=== PATIENT | female | born 1965 | race Caucasian/White ===

== ENCOUNTER 2022-12-09 00:12 | Day surgery (SDC) | payer OTHER, MEDICARE, MEDICAID, SELFPAY ==
[2022-11-27 13:04] VITALS: BMI 29.8
--- NOTE | 2022-11-27 13:14 | PC.NURSE ---
Report to the Outpatient Waiting Room, entrance under the green pavilion located off [facility], at time 9:30 on date 12/09/22. Planned Procedure Time: 11:30. Time changes happen often and if your time is changed the preop area will call you the afternoon before. - You and your visitor will be asked to self-screen and do not enter if you have any COVID symptoms. - Only one visitor is requested with a max of two and NO children visitors are allowed at this time. - The patient visitor may be requested to leave or wait in car when not with patient due to distancing restrictions. - A mask is optional within the hospital. Patients may have clear liquids (water, carbonated beverages, clear teas, apple juice) until 3 hours prior to surgery with a maximum of 20 ounces. - No food from midnight until time of surgery Take the following medications with a SIP of water the morning of surgery: INHALERS, DIVALPROEX, LEVOTHYROXINE, METOPROLOL, PREGABALIN, TOPIRAMATE Medications to discontinue per physician: VITAMINS/SUPPLEMENTS Date to take last dose: 12/05/22 Please no make-up, nail slovak, hairspray, perfume, deodorant, or body powder the day of surgery. No jewelry (including any body piercings) or valuables the day of surgery, leave them at home. Please take a shower or bath the night before, or the morning of, surgery with an antibacterial soap. Wear comfortable, loose fitting clothing. - Jewelry must be removed prior to entering the operating room. Rings and piercings that are not removed may be cut off. - The hospital will not accept responsibility for valuables. - Please leave all valuables, including medications, at home the day of surgery. If you are going home after surgery, a licensed electric screw driver operator must drive you home. - NO public transportation without another adult if you receive anesthesia. - We recommend that an adult stay with you for 24 hours following discharge. - We also recommend that you do not drive, make important decision, drink alcoholic beverages, or take any drugs that were not prescribed by your health care provider for at least 24 hours after your discharge time. Follow any additional instructions given to you from your surgeon. If you or anyone in your household have experienced Covid symptoms in the past week, please notify your surgeon or the nurse liaison at the phone number below for possible testing. Telephone instructions given to SO ADEN and asked if any additional questions and then verbalized understanding. Patient advised to call surgeon office or pre surgery nurse liaison [phone] if any additional questions.
--- NOTE | 2022-12-08 11:55 | PM.IMHP ---
H&P: HPI History of Present Illness Date/Time: 12/08/22 11:55 Chief Complaint: Prolapse, stress incontinence Narrative: This is a woman with mixed urinary incontinence. For her overactive bladder symptoms she receives Botox injections. She continues to be bothered by pelvic organ prolapse as well as stress incontinence. She is wearing a pessary currently to temporize her prolapse symptoms. She desires surgical treatment to resolve the symptoms. Stress incontinence is documented on urodynamic Review of Systems Review of Systems: All systems reviewed & are unremarkable except as noted in HPI and below [facility] Social History Social History Smoking status: Never smoker Alcohol intake: never Substance use: never Substance use type: does not use Living arrangements: with family Spiritual care concerns: No Meds Home Medications and Allergies Home Medications Medication Instructions Recorded Confirmed Type albuterol sulfate 90 mcg/actuation 2 puff inhalation QID PRN 11/27/22 11/27/22 History aerosol inhaler Bronchospasm biotin 10,000 mcg chewable tablet 10,000 mcg PO BID 11/27/22 11/27/22 History (Hair, Skin and Nails (biotin)) budesonide-formoterol HFA 160 2 puff inhalation Q12H 11/27/22 11/27/22 History mcg-4.5 mcg/actuation aerosol inhaler (Symbicort) mjegkzqkyf-qlwdbbyztmdtk-azgbchnp 1 tablet PO Q6H PRN Pain 11/27/22 11/27/22 History 50 mg-325 mg-40 mg tablet calcium carbonate 500 mg-vitamin 1 tablet PO BID 11/27/22 11/27/22 History D3 3.125 mcg (125 unit) tablet cetirizine 10 mg tablet (Zyrtec) 10 mg PO DAILY 11/27/22 11/27/22 History cyclosporine 0.05 % eye drops in a 1 drp EACH EYE Q12H 11/27/22 11/27/22 History dropperette (Restasis) diltiazem HCl 120 mg 120 mg PO DAILY 11/27/22 11/27/22 History capsule,extended release 24 hr, controlled divalproex 250 mg tablet,extended 250 mg PO DAILY 11/27/22 11/27/22 History release 24 hr duloxetine 60 mg capsule,delayed 60 mg PO HS 11/27/22 11/27/22 History release levothyroxine 50 mcg tablet 50 mcg PO DAILY 11/27/22 11/27/22 History lxmgxf-dvacuvex-bgneihx 1 cap PO TID 11/27/22 11/27/22 History 24,000-76,000-120,000 unit capsule,delayed rel (Creon) lubiprostone 8 mcg capsule 8 mcg PO BID 11/27/22 11/27/22 History (Amitiza) metoprolol succinate 25 mg 25 mg PO BID 11/27/22 11/27/22 History tablet,extended release 24 hr montelukast 10 mg tablet 10 mg PO HS 11/27/22 11/27/22 History (Singulair) omeprazole 20 mg tablet,delayed 20 mg PO BID 11/27/22 11/27/22 History release ondansetron 8 mg disintegrating 8 mg PO Q8H PRN Nausea 11/27/22 11/27/22 History tablet pregabalin 50 mg capsule 100 mg PO BID 11/27/22 11/27/22 History simvastatin 10 mg tablet 10 mg PO HS 11/27/22 11/27/22 History sumatriptan succinate 100 mg tablet 100 mg PO ONCE PRN Migraine 11/27/22 11/27/22 History Headache topiramate 25 mg tablet 50 mg PO BID 11/27/22 11/27/22 History valacyclovir 500 mg tablet 500 mg PO HS 11/27/22 11/27/22 History Allergies Allergy/AdvReac Type Severity Reaction Status Date / Time amoxicillin Allergy Dyspnea / Verified 11/27/22 12:52 SOB clindamycin Allergy Dyspnea / Verified 11/27/22 12:52 SOB enoxaparin [From Lovenox] Allergy Rash Verified 11/27/22 12:52 latex Allergy Rash Verified 11/27/22 12:52 Penicillins Allergy Dyspnea / Verified 11/27/22 12:52 SOB oxycodone AdvReac Nausea and Verified 11/27/22 12:52 Vomiting Exam Narrative: No acute distress Normal breathing Alert orient x3 Cystocele to the introitus. Rectocele to the introitus. Positive urethral mobility Assessment and Plan Assessment and plan (1) Cystocele with rectocele: Code(s): N81.10 - Cystocele, unspecified; N81.6 - Rectocele Status: Acute (2) ALLIE (stress urinary incontinence, female): Code(s): N39.3 - Stress incont
[2022-12-09] VITALS (8 sets, daily range): BP systolic 108–139; BP diastolic 52–77; PULSE 62–86; RESP 15–20; TEMP 36.7; O2SAT 95–100
--- NOTE | 2022-12-09 07:12 | WPDHPUPDATE1 ---
History and Physical Update Update Date/Time: 12/09/22 07:12 History and Physical has been reviewed, including an updated exam of the patient. There are NO changes in the patient's condition. Risks, benefits, and alternatives have been discussed and questions answered. Patient agrees to proceed with procedure.
--- NOTE | 2022-12-09 07:54 | ECG_ITS ---
Measurements Intervals Anderson Rate: 63 P: 59 SD: 185 QRS: -4 QRSD: 90 T: 22 QT: 410 QTc: 421 Interpretive Statements SINUS RHYTHM INCOMPLETE RIGHT BUNDLE BRANCH BLOCK BASELINE ARTIFACT- V5 BORDERLINE ECG NO PREVIOUS ECG AVAILABLE FOR COMPARISON Electronically Signed On 12-09-2022 11:58:32 [employer]RARY [employer]IST by Christiano Goins D.O.
[2022-12-09] MEDS: LACTATED RINGERS 1,000 ML 30 ML IV CONT ×2 (09:44→12:59)
--- NOTE | 2022-12-09 10:21 | WPDANESEPPF ---
Anes - Initial Pre Proc Eval Procedure: Operation Date: 12/09/22 11:30 Proposed Procedures p Cystocele and Rectocele Repair, Possible Urethral Sling - Miguel Angel Hodge MD Date/Time: 12/09/22 10:21 Surgeon: Miguel Angel Hodge MD Pre Op Diagnosis: midline cystocele, rectocele, stress incontience Patient Data Age: 57 Gender: F Height: 1.57 m Weight: 75.6 kg Last Vital Signs Temp 98.0 F 12/09/22 10:07 Pulse 63 12/09/22 10:07 Resp 16 12/09/22 10:07 BP 108/52 L 12/09/22 10:07 Pulse Ox 98 12/09/22 10:07 O2 Del Method Room Air 12/09/22 10:07 Allergies Allergy/AdvReac Type Severity Reaction Status Date / Time amoxicillin Allergy Dyspnea / Verified 12/09/22 09:51 SOB clindamycin Allergy Dyspnea / Verified 12/09/22 09:51 SOB enoxaparin [From Lovenox] Allergy Rash Verified 12/09/22 09:51 latex Allergy Rash Verified 12/09/22 09:51 Penicillins Allergy Dyspnea / Verified 12/09/22 09:51 SOB oxycodone AdvReac Nausea and Verified 12/09/22 09:51 Vomiting Home Medications Medication Instructions Recorded Confirmed Type albuterol sulfate 90 mcg/actuation 2 puff inhalation QID PRN 11/27/22 12/09/22 History aerosol inhaler Bronchospasm biotin 10,000 mcg chewable tablet 10,000 mcg PO BID 11/27/22 12/09/22 History (Hair, Skin and Nails (biotin)) budesonide-formoterol HFA 160 2 puff inhalation Q12H 11/27/22 12/09/22 History mcg-4.5 mcg/actuation aerosol inhaler (Symbicort) ublvllqzqi-wbfgukzxwyxac-klghckax 1 tablet PO Q6H PRN Pain 11/27/22 12/09/22 History 50 mg-325 mg-40 mg tablet calcium carbonate 500 mg-vitamin 1 tablet PO BID 11/27/22 12/09/22 History D3 3.125 mcg (125 unit) tablet cetirizine 10 mg tablet (Zyrtec) 10 mg PO DAILY 11/27/22 12/09/22 History cyclosporine 0.05 % eye drops in a 1 drp EACH EYE Q12H 11/27/22 12/09/22 History dropperette (Restasis) diltiazem HCl 120 mg 120 mg PO DAILY 11/27/22 12/09/22 History capsule,extended release 24 hr, controlled divalproex 250 mg tablet,extended 250 mg PO DAILY 11/27/22 12/09/22 History release 24 hr duloxetine 60 mg capsule,delayed 60 mg PO HS 11/27/22 12/09/22 History release levothyroxine 50 mcg tablet 50 mcg PO DAILY 11/27/22 12/09/22 History bzmulv-ofkdcgfh-jcsjklf 1 cap PO TID 11/27/22 12/09/22 History 24,000-76,000-120,000 unit capsule,delayed rel (Creon) lubiprostone 8 mcg capsule 8 mcg PO BID 11/27/22 12/09/22 History (Amitiza) metoprolol succinate 25 mg 25 mg PO BID 11/27/22 12/09/22 History tablet,extended release 24 hr montelukast 10 mg tablet 10 mg PO HS 11/27/22 12/09/22 History (Singulair) omeprazole 20 mg tablet,delayed 20 mg PO BID 11/27/22 12/09/22 History release ondansetron 8 mg disintegrating 8 mg PO Q8H PRN Nausea 11/27/22 12/09/22 History tablet pregabalin 50 mg capsule 100 mg PO BID 11/27/22 12/09/22 History simvastatin 10 mg tablet 10 mg PO HS 11/27/22 12/09/22 History sumatriptan succinate 100 mg tablet 100 mg PO ONCE PRN Migraine 11/27/22 12/09/22 History Headache topiramate 25 mg tablet 50 mg PO BID 11/27/22 12/09/22 History valacyclovir 500 mg tablet 500 mg PO HS 11/27/22 12/09/22 History Patient hx anesthesia problems: post op nausea/vomiting Family hx anesthesia problems: none Results Review: All pre-operative results and documents have been reviewed as part of the pre-operative evaluation. [facility] Past Medical History Medical History (Updated 12/09/22 @ 10:14 by Nina Cardona CRNA) Anxiety Asthma Depression Dyspnea Fibromyalgia Hyperlipidemia Hypertension Obesity (BMI 30-39.9) REILLY on CPAP Paroxysmal A-fib Surgical History Surgical History (Updated 12/09/22 @ 10:16 by Nina Cardona, NEUROPSYCHOLOGY MEDICAL CONSULTANT) History of appendectomy History of lumbar spinal fusion History of repair of hiatal hernia Status post insertion of nerve stimulator Total knee replacement status bilateral Social History Social
[2022-12-09] MEDS: ceFAZolin 2 GM/D5W 50 ML 2 GM/50 ML BAG IVPB (10:28)
[2022-12-09] MEDS: BUPIVACAINE/EPINEPHRINE 0.5% 30 ML VIAL INFILTRATE (11:00)
--- NOTE | 2022-12-09 12:24 | W.PM.PROC2 ---
Procedure Note - Detailed Date of Procedure 12/09/22 Pre-op Diagnosis midline cystocele, rectocele, stress incontience Post-op Diagnosis Same Procedure Performed Rectocele repair, cystocele repair, urethral sling, cystoscopy Surgeon Miguel Angel Hodge MD Anesthesia General Indications This is a woman status post hysterectomy. She has bothersome stress incontinence as well as pelvic organ prolapse. She also receives Botox for overactive bladder. She is here today for treatment of her prolapse and stress incontinence. She understands the risks of bleeding, infection, damage to the bowel or bladder, fistula formation, recurrence of prolapse, dyspareunia, postoperative voiding dysfunction including incontinence and retention, need for ancillary procedures, hip and leg pain, mesh related complications including exposure and extrusion. She agrees to proceed Description of Procedure She was correctly identified. Informed consent obtained. She from the operating room. She was placed in the dorsal lithotomy position. She was prepped and draped sterile fashion. She was given appropriate perioperative antibiotics. A time-out performed. I placed Carpenter catheter. I placed a [place] retractor. I grasped the rectocele with Allis clamps. There was scarring in the area from previous rectocele repair. I infiltrated the subcutaneous tissues with lidocaine mixed with epi and saline. I made a midline vaginal incision the posterior vaginal wall. I dissected the mucosa off the underlying fascial structures. I did this laterally and back towards the apex. Again there was quite a bit of scarring in this area. I took great care not to injure surrounding organs or the rectum. I then performed a standard plication rectocele repair. I used interrupted 0 Vicryl sutures. Of note the vaginal skin was quite thickened and scarred. I then trimmed excess vaginal mucosa. I closed the vaginal mucosa with a running 2-0 Vicryl suture. I then turned my distress a cystocele. I grasped the cystocele with Allis clamps. I infiltrated the subcutaneous tissues with local mixed with saline and epinephrine. I made a midline vaginal incision on the anterior wall. Again the skin was quite scarred and thickened. I dissected laterally and back towards the apex. I then performed a standard plication cystocele repair. I used 0 Vicryl suture in interrupted fashion. I trimmed excess vaginal mucosa and closed the vaginal mucosa with a running 2-0 Vicryl suture. There was reduction of the prolapse without undue narrowing of the vagina. I then turned my attention towards urethral sling. I marked out the inner thigh incisions. I anesthetized the skin and made those incisions. I then anesthetized the anterior vaginal wall over the mid urethra. I dissected laterally taking great care and I do into the urethra the vaginal wall. I then passed helical trocars 1st on the left and then on the right from the thigh incision towards the vaginal incision. Sling was connected to the trocars remote the thigh incision. I tensioned appropriately. I cut new plastic sheaths. I then closed incision with 2-0 Vicryl. On cystoscopy she had mild trabeculations. No abnormal red patches. No foreign bodies. No tumors. No surgical artifact the bladder or urethra. Ureteral patency was documented by placing guidewires up both ureters. I cut the excess sling material. Closed incision with glue. She was awakened transferred to PACU in stable condition. Estimated Blood Loss 40 Urine Output -125.0 Pathology None sent Complications No immediate complications Condition Stable Disposition PACU
[2022-12-09] MEDS: fentaNYL CITRATE INJ (*CRX) 100 MCG/2 ML VIAL 25 MCG IV PUSH ×3 (12:36→12:48)
[2022-12-09] MEDS: ONDANSETRON INJ 4 MG/2 ML VIAL IV PUSH (12:36)
--- NOTE | 2022-12-09 14:01 | SUR.PHASEII ---
1320 - pt to bathroom. pt voided without difficulty 1345 - pt to bathroom. pt was able to void without difficulty.
== END 2022-12-09 14:01 | disposition home or self-care (01) ==
PROVIDERS: Visit Provider Urology
PROC: (CPT 57260; principal; 2022-12-09 11:30)
DX: N81.10 Cystocele, unspecified (principal); N81.89 Other female genital prolapse; N39.3 Stress incontinence (female) (male); N81.6 Rectocele; N32.81 Overactive bladder; J45.909 Unspecified asthma, uncomplicated; I10 Essential (primary) hypertension; E78.5 Hyperlipidemia, unspecified; M79.7 Fibromyalgia; I48.0 Paroxysmal atrial fibrillation; G47.33 Obstructive sleep apnea (adult) (pediatric); F41.9 Anxiety disorder, unspecified; F32.A Depression, unspecified; Z98.1 Arthrodesis status; E66.9 Obesity, unspecified; Z68.30 Body mass index [BMI] 30.0-30.9, adult; Z79.51 Long term (current) use of inhaled steroids
CPT/HCPCS: 57260; 57288; 93005; A9270; C1769; C1771; C1894; J0690; J1100; J2250; J2405; J2704; J3010; J7030; J7120; Q9968